=== PATIENT | female | born 1975 | race Caucasian/White ===

== ENCOUNTER 2019-11-07 13:26 | Emergency (ER) | payer OTHER ==
[~2019-11-07] VITALS: Ht 157.5 cm; Wt 69.4 kg
[2019-11-07 13:32] VITALS: BP 152/95
[2019-11-07] MEDS ORDERED: FLUORESCEIN OPHTHALMIC 1 MG STRIP ONE (13:44)
[2019-11-07] MEDS ORDERED: PROPARACAINE OPHTH 0.5%, 15ML ONE (13:44)
[2019-11-07] MEDS ORDERED: FLUORESCEIN OPHTHALMIC 1 MG STRIP EACHEYE ONE (14:00)
[2019-11-07] MEDS ORDERED: PROPARACAINE OPHTH 0.5%, 15ML EACHEYE ONE (14:00)
[2019-11-07] MEDS ORDERED: ERYTHROMYCIN OPHTH 0.5%, 1GM LEFTEYE ONE (14:30)
[2019-11-07] MEDS ORDERED: HYDROcodone/APAP 5/325 TABLET PO ONE (14:30)
[2019-11-07] MEDS ORDERED: HYDROcodone/APAP 5/325 TABLET ONE (14:44)
== END 2019-11-07 15:09 | disposition home or self-care (01) ==
LOC: ED 15:03
DX: S05.32XA Ocular laceration without prolapse or loss of intraocular tissue, left eye, initial encounter (principal); X58.XXXA Exposure to other specified factors, initial encounter; Y93.89 Activity, other specified; Y92.89 Other specified places as the place of occurrence of the external cause; Y99.0 Civilian activity done for income or pay
CPT/HCPCS: 99283